=== PATIENT | female | born 1975 | race Caucasian/White ===

== ENCOUNTER 2017-02-26 21:06 | Emergency (ER) | payer OTHER ==
[2017-02-26] MEDS ORDERED: Lidocaine 1% 30 ML SDV INJECT ONE (21:13)
--- NOTE | 2017-02-27 02:01 | ER ---
Date of Service: 02/26/2017 SUBJECTIVE: The patient states that she caught her leg on shower door of their camper trailer and sustained approximately 4-cm laceration to the posterior aspect of her right lower leg. The patient states that her tetanus is up-to- date. She states that the incident happened just prior to coming to the emergency room. She states that the injury is superficial and denies injury elsewhere. PAST MEDICAL HISTORY: Tobacco abuse disorder. MEDICATIONS: None. ALLERGIES: NKDA. REVIEW OF SYSTEMS: Please see history of present illness. Injury again is isolated to her right posterior lower leg. PHYSICAL EXAMINATION: General: This is a 41-year-old female patient, who is in no acute distress. Vital Signs: Blood pressure is 134/86, heart rate 76, temperature is 35.4, respiratory rate 16, and O2 saturations 96%. Skin: Warm, pink, and dry. Musculoskeletal: The patient has approximately 4-cm laceration to the posterior aspect of her left lower leg. No trauma noted to the underlying structures of the leg. Remainder of her physical examination is within normal limits. EMERGENCY ROOM COURSE: The laceration was thoroughly cleansed with chlorhexidine and normal saline. The patient's leg was prepped and draped in usual sterile fashion. A total of 5 mL of 1% lidocaine was used to anesthetize the laceration. Excellent wound approximation. Using sterile technique, a total of 5 interrupted 4-0 nylon sutures was used to reapproximate and close the laceration. Excellent approximation and hemostasis was achieved following suturing. The patient tolerated this well. She remained stable in my care in the emergency room. ASSESSMENT: A 4-cm laceration to right posterior lower leg. PLAN: The patient will be discharged. Sutures out in 10 to 12 days. She is a smoker. Steri-Strips were placed over the sutures to aid in holding the laceration close. Nonadherent dressing was placed over the Steri-Strips laceration and which was held in place with Nelly and elastic bandage. We will have her keep this dressing on for 24 hours. Keep the laceration dry for 48 hours. Allow the Steri-Strips to fall off on their own. Return to the emergency room or followup in clinic if she develops any redness, swelling, or discharge from the area. Also, she was advised to have the sutures out again in 10 to 12 days. All questions were answered. MWK: 02/26/2017 23:15:49 MODL: 02/27/2017 00:43:42 /[id number]
== END 2017-02-26 22:00 | disposition home or self-care (01) ==
LOC: VM.ED 21:06
DX: S81.811A Laceration without foreign body, right lower leg, initial encounter (principal); Z72.0 Tobacco use; W23.0XXA Caught, crushed, jammed, or pinched between moving objects, initial encounter
CPT/HCPCS: 12002; 99283